=== PATIENT | female | born 1970 | race Caucasian/White ===

== ENCOUNTER 2016-10-13 14:05 | Inpatient (IN) | payer OTHER ==
[~2016-10-13] VITALS: Ht 157.5 cm; Wt 67.1 kg
[2016-10-14] MEDS ORDERED: INSULIN HUMAN REGULAR 1,000 UNITS/10 ML VIAL SQ PRN (07:45)
[2016-10-14] MEDS ORDERED: METOPROLOL TARTRATE 25 MG TAB PO PRN (07:45)
[2016-10-14] MEDS ORDERED: SODIUM CHLORID 0.9% 500 ML IV PRN (07:45)
[2016-10-14] MEDS ORDERED: POVIDONE IODINE 5% (ANTISEPSIS KIT) 4 APPLICATIONS EACH NARE PRN (07:45)
[2016-10-14] MEDS ORDERED: CHLORHEXIDINE GLUCONATE 2 % 1 PACK (2 CLOTHS) TOPICAL PRN (07:45)
[2016-10-14 07:53] VITALS: BP 129/82; PULSE 83; RESP 18; TEMP 98.5; O2SAT 99
[2016-10-14] MEDS ORDERED: LACTATED RINGER'S 1000 ML IV PRN (08:00)
[2016-10-14 08:01] LABS: AUTOMATED NEUTROPHIL # 5.6 TH/MM3 (1.8-7.7); BASOPHIL # 0.1 TH/MM3 (0-0.2); BASOPHIL % 1.1 % (0.0-2.0); EOSINOPHIL # 0.3 TH/MM3 (0-0.4); EOSINOPHIL % 3.2 % (0.0-4.0); HEMO FLAGS DIFF FINAL; LYMPH % 26.7 % (9.0-44.0); LYMPHOCYTE # 2.4 TH/MM3 (1.0-4.8); MEAN CELL VOLUME 97.6 FL (80.0-100.0); MEAN CORPUSCULAR HEMOGLOBIN 33.1 PG (27.0-34.0); MEAN CORPUSCULAR HGB CONC 33.9 % (32.0-36.0); MONO % 6.6 % (0.0-8.0); NEUT % 62.4 % (16.0-70.0); PLATELET COUNT 245 TH/MM3 (150-450); RED CELL DISTRIBUTION WIDTH 13.9 % (11.6-17.2)
[2016-10-14 08:10] LABS: APTT (PATIENT) 24.1 SEC (24.3-30.1); PROTHROMBIN TIME - PATIENT 10.5 SEC (9.8-11.6)
[2016-10-14 08:23] LABS: ALKALINE PHOSPHATASE 99 U/L (45-117); TOTAL BILIRUBIN ADULT 0.8 MG/DL (0.2-1.0)
[2016-10-14 08:24] LABS: ALT (GPT) 52 U/L (10-53); ANION GAP 9 MEQ/L (5-15); AST (GOT) 46 U/L (15-37); BICARBONATE 23.2 MEQ/L (21.0-32.0); BLOOD UREA NITROGEN 4 MG/DL (7-18); CHLORIDE 109 MEQ/L (98-107); GLOMERULAR FILTRATION RATE 98 ML/MIN (>89); SODIUM (NA) 141 MEQ/L (136-145)
[2016-10-14] MEDS ORDERED: LIDOCAINE 1%/EPINEPHrine 1:100,000 SOLN 50 ML VIAL ONE (08:29)
[2016-10-14] MEDS ORDERED: DEXAMETHASONE SOD PHOS 4 MG/ML VIAL ONE (09:03)
[2016-10-14] MEDS ORDERED: MIDAZOLAM HCL 2 MG/2 ML VIAL ONE (09:03)
[2016-10-14] MEDS ORDERED: fentaNYL CITRATE 250 MCG/5 ML AMP ONE (10:34)
[2016-10-14] MEDS ORDERED: DO NOT ADM ANY ANTICOAGULANT DRUGS PRN (11:00)
[2016-10-14] MEDS ORDERED: ACETAMINOPHEN/HYDROcodone 325 MG/5 MG TAB PO PRN (11:15)
[2016-10-14 11:45] VITALS: BP 143/69; PULSE 67; RESP 20; TEMP 98; O2SAT 98
[2016-10-14] MEDS ORDERED: PROPOFOL 200 MG/20 ML AMP IV ONE (12:00)
[2016-10-14] MEDS ORDERED: ONDANSETRON HCL 4 MG/2 ML VIAL IV PUSH ONE (12:00)
[2016-10-14] MEDS ORDERED: KETOROLAC TROMETHAMINE 60 MG/2 ML (IM) VIAL IM ONE (12:00)
[2016-10-14] MEDS ORDERED: ePHEDrine/NS 25 MG/5 ML SYR IV ONE (12:00)
[2016-10-14] MEDS ORDERED: ceFAZolin 1 GM ADDVANTAGE VIAL IV ONE (12:00)
--- NOTE | 2016-10-19 09:10 | MP ---
cc: Melissa TENA MD, KELLY L. 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 PROCEDURE Modified radical resection of the vulva and perineum. SURGEON Leni Hurtado CLINICAL LAB CLERK [employer] ANESTHESIA General endotracheal. ESTIMATED BLOOD LOSS 30 cc. HISTORY A 46-year-old female who has had a symptomatic and raised pruritic area on the perineum, posterior vulva and perianal area by her own admission at least for several years. She recently sought further evaluation. Biopsy showed carcinoma in situ. She was seen and evaluated in the [facility] office where the findings were shown to her on the colposcopy view monitor and the outline recommended of the surgical excision. The rationale for surgery to remove the abnormal tissue and to exclude invasive cancer were discussed and reviewed. She is seen again in the pre-op holding area where this discussion is again held. Questions were answered. She expressed good understanding and would like to move forward with surgical management. FINDINGS Under anesthesia are as described on preoperative note from our office. No new lesions or other changes are detected. The abnormality is fairly extensive replacing the perineum and posterior vulva bilaterally and extending toward the 12 o'clock position in the perianal region. DETAILS OF PROCEDURE The patient was taken to the operating room and placed in the dorsal lithotomy position after general endotracheal anesthesia was administered. A timeout was undertaken. The patient was identified by sight recognition and hospital ID bracelet and the proposed procedure was reviewed and confirmed. Exam under anesthesia was performed. Dilute acetic acid is applied. The outline of the areas of abnormality were clarified. She was prepped and draped in sterile fashion. A surgical marker was used to outline an excision that was essentially a stellate excision with an elliptical area of excising from the right posterior vulva, the left posterior vulva across the perineum and then extending in the 12 o'clock position to the perianal region. Lidocaine-epinephrine was injected subcutaneously. A margin of grossly appearing skin and mucosa circumferentially was removed with the specimen. Some subcutaneous tissue was included in the specimen for evaluation of the possibility of microscopic invasion and the specimen was removed as a single specimen labeled posterior vulva perineum with a suture at 12 o'clock which corresponded to the introitus or the vaginal opening margin of the specimen. The surgical defect was closed in layers with interrupted 3-0 Vicryl sutures to bring the skin and mucosa into close proximity until the skin and/or mucosa were in close proximity without tension. The superficial areas were then closed with interrupted 3-0 Vicryl sutures which rendered the defect completely hemostatic. There was good reapproximation without undue tension, satisfactory cosmetic result, and all areas of abnormality with a grossly negative margin had been resected. Pelvic exam confirmed there were no remaining foreign objects in the vagina. Preliminary and final counts were correct. She was returned to dorsal supine position and was pending reversal of anesthesia when I left the operating room to precede her to the post-anesthesia care unit. MD NGOC Ramey/DEMARCUS /7:34 AM /8:55 AM
== END 2016-10-14 11:47 | disposition home or self-care (01) | DRG 747 ==
LOC: HSDI 10-14 06:47
PROVIDERS: ADMIT Obstetrics & Gynecology Gynecologic Oncology; ATTEND Obstetrics & Gynecology Gynecologic Oncology
PROC: 0HB9XZX Excision of Perineum Skin, External Approach, Diagnostic (ICD-10-PCS; 2016-10-14)
PROC: 0UBMXZZ Excision of Vulva, External Approach (ICD-10-PCS; principal; 2016-10-14 09:05)
DX: D07.1 Carcinoma in situ of vulva (principal); F17.210 Nicotine dependence, cigarettes, uncomplicated; M19.90 Unspecified osteoarthritis, unspecified site
CPT/HCPCS: 80053; 85025; 85610; 85730; 86850; 86900; 86901; 88305; J0690; J1100; J1885; J2250; J2405; J3010

== ENCOUNTER 2017-01-19 11:23 | Emergency (ER) | payer OTHER ==
[~2017-01-19] VITALS: Ht 157.5 cm; Wt 67.0 kg
[2017-01-19 11:24] VITALS: BP 143/87; PULSE 79; RESP 16; TEMP 98.6; O2SAT 99
--- NOTE | 2017-01-19 11:35 | PD ---
Physical Exam Time Seen by Provider: 11:32 Narrative 46 y/o female here for evaluation of a cystic lesion in the "rectal area" where the patient underwent a vulvectomy in october 2016. Painful, worse when sitting. Vital signs reviewed. Seen at triage desk. Awaiting bed placement. Data Data Last Documented VS Vital Signs Date Time Temp Pulse Resp B/P Pulse Ox O2 Delivery O2 Flow Rate FiO2 01/19/17 11:24 98.6 79 16 143/87 99 Room Air [facility] [place] Medical Record Reviewed: Yes Supervised Visit with SHELBY: No Scripts No Active Prescriptions or Reported Meds Magan Ramos Jan 19, 2017 11:35
--- NOTE | 2017-01-19 11:50 | PD ---
HPI Chief Complaint: Skin Problem Time Seen by Provider: 11:45 Travel History International Travel<30 days: No Contact w/Intl Traveler<30days: No Traveled to known affect area: No History of Present Illness HPI 46-year-old female presents the emergency department with painful "lump" in her rectal area. Patient states he did have vaginal surgery in October and is worried that she may have some sort of abscess or infection. She denies drainage or bleeding. No history of hemorrhoids in the past. Patient states it is more painful with BM. She's had no blood in her stool. She has no vaginal discharge or urinary symptoms. She has had hot flashes but denies specific fever. Patient has no abdominal pain. She is allergic to eggs, codeine, and Tegretol. PFSH Past Medical History Anxiety: Yes Depression: Yes Cancer: Yes Cardiovascular Problems: No Diabetes: No Endocrine: No Genitourinary: No Hepatitis: No Hiatal Hernia: No Immune Disorder: No Musculoskeletal: Yes (back pain, l hip pain) Neurologic: No Psychiatric: Yes (PTSD) Reproductive: No Respiratory: Yes (sleep apnea cpap not needed yet per patient) Thyroid Disease: No ?: Not Tubal Ligation: Yes Past Surgical History Abdominal Surgery: No AICD: No Body Medical Devices: none Cardiac Surgery: No Ear Surgery: No Endocrine Surgery: No Eye Surgery: No Genitourinary Surgery: No Gynecologic Surgery: Yes (c section x4) Joint Replacement: No Oral Surgery: No Pacemaker: No Thoracic Surgery: No Other Surgery: Yes ( X 4) Social History Alcohol Use: Yes (DAILY) Tobacco Use: Yes (1 1/2PPD) Substance Use: Yes (ETOH DAILY) Allergies-Medications (Allergen,Severity, Reaction): Coded Allergies: Codeine (Verified Allergy, Severe, Nausea/Vomiting, 10/14/16) Egg Allergy (Verified Allergy, Severe, UNKNOWN, 10/14/16) Tegretol (Verified Allergy, Severe, Hives, 10/14/16) Reported Meds & Prescriptions Reported Meds & Active Scripts Active No Active Prescriptions or Reported Medications Review of Systems Except as stated in HPI: all other systems reviewed are Neg General / Constitutional: No: Fever Eyes: No: Visual changes HENT: No: Headaches Cardiovascular: No: Chest Pain or Discomfort Respiratory: No: Shortness of Breath Gastrointestinal: No: Abdominal Pain Genitourinary: No: Dysuria Musculoskeletal: No: Pain Skin: Positive Lesions (see history of present illness.), No Rash Neurologic: No: Weakness Psychiatric: No: Depression Endocrine: No: Polydipsia Hematologic/Lymphatic: No: Easy Bruising Physical Exam Narrative Patient is examined with nursing staff as teller. GENERAL: Patient appears in mild to moderate distress. SKIN: Warm and dry. Normal color. Normal turgor. Patient has firm tender hemorrhoid at the 7 o'clock position, without erythema or signs of cellulitis. No signs of rectal fissure. HEAD: Atraumatic. Normocephalic. EYES: Pupils equal and round. No scleral icterus. No injection or drainage. ENT: No nasal bleeding or discharge. Mucous membranes pink and moist. Pharynx is clear. Airway is patent. NECK: Trachea midline. Supple nontender CARDIOVASCULAR: Regular rate and rhythm. RESPIRATORY: No accessory muscle use. Clear to auscultation. Breath sounds equal bilaterally. GASTROINTESTINAL: Abdomen soft, non-tender, nondistended. Hepatic and splenic margins not palpable. MUSCULOSKELETAL: Extremities without clubbing, cyanosis, or edema. No obvious deformities. NEUROLOGICAL: Awake and alert. No obvious cranial nerve deficits. Motor grossly within normal limits. Five out of 5 muscle strength in the arms and legs. Normal speech. PSYCHIATRIC: Appropriate mood and affect; insight and judgment normal. Data Data Last Documented VS Vital Signs Date Time Temp Pulse Resp B/P Pulse Ox O2 Delivery O2 Flow Rate FiO2 01/19/17 11:24 98.6 79 16 143/87 99 Room Air MDM Medical Decision Making Medical Screen Exam Complete: Yes Emergency Medical Condition: Yes Differential Diagnosis Rectal pain. Possible abscess. Hemorrhoid. Narrative Course Patient has a tender hemorrhoid without obvious signs of thrombosis. Patient will be treated empirically with hydrocortisone suppository and sitz bath followed by ice. Patient can follow with her primary care physician or return to the emergency department as needed. Diagnosis Primary Impression: Acute hemorrhoid Referrals: [facility] Patient Instructions: General Instructions Additional Instructions: Patient has a tender hemorrhoid without obvious signs of thrombosis. Patient will be treated empirically with hydrocortisone suppository and sitz bath followed by ice. Patient can follow with her primary care physician or return to the emergency department as needed. Med/Other Pt SpecificInfo: Prescription(s) given Scripts No Active Prescriptions or Reported Meds Disposition: 01 DISCHARGE HOME Condition: Juancarlos Torrez Jan 19, 2017 11:50
[2017-01-19] MEDS ORDERED: ANUC25SU RECTAL (11:51)
[2017-01-19] MEDS ORDERED: IBUP-232 PO (11:51)
== END 2017-01-19 12:03 | disposition home or self-care (01) ==
LOC: NEPK 11:23
DX: K64.4 Residual hemorrhoidal skin tags (principal); F43.10 Post-traumatic stress disorder, unspecified; F17.210 Nicotine dependence, cigarettes, uncomplicated
CPT/HCPCS: 99283

== ENCOUNTER 2017-12-31 16:30 | Emergency (ER) | payer SELFPAY ==
[~2017-12-31] VITALS: Ht 160 cm; Wt 57.0 kg
[~2017-12-31 16:30] MED LIST: ANUC25SU RECTAL; IBUP-232 PO
[2017-12-31 16:55] VITALS: BP 159/76; PULSE 74; RESP 14; TEMP 98.3; O2SAT 97
== END 2017-12-31 17:42 | disposition left against medical advice (07) ==
LOC: NED 16:30
DX: R51 Headache (principal)
CPT/HCPCS: 99281